=== PATIENT | male | born 1990 | race Caucasian/White ===

== ENCOUNTER 2018-02-11 13:32 | Emergency (ER) | payer BC, SELFPAY ==
--- NOTE | 2018-02-11 13:37 | W.ED.GENAD ---
Discharge Plan Disposition Patient Disposition: HOME Condition: Good Discharge Details Chief Complaint: Urinary Clinical Impression: Acute UTI Primary Care Provider: Anaya Cason ED Provider: Hank Braden Home Meds and New Rx's Prescriptions: New nitrofurantoin macrocrystal 100 mg capsule 100 mg PO QID Qty: 28 RF: 0 No Action amoxicillin-pot clavulanate 1 TAB tablet 1 ea PO BID Qty: 14 RF: 0 sulfamethoxazole-trimethoprim [Bactrim DS] 1 EACH tablet 2 ea PO BID Qty: 28 RF: 0 hydrocodone-acetaminophen 1 EACH tablet 1 ea PO Q4H Qty: 10 RF: 0 hydrocodone-acetaminophen 1 TAB tablet 1 - 2 tab PO Q4H PRN PRN (Reason: Pain) Qty: 20 RF: 0 Discharge Instructions Instructions: Urinary Tract Infection in Men (ED) Referrals: [facility] Emergency Dept. [Outside] - Return if symptoms worsen Discharge Data Discharge Date/Time-TO BE ENTERED AT DEPARTURE: 02/11/18 15:40 Medical Decision Making UA with 10-20 WBC and symptoms are consistent with uti. Prescribed Macrobid. Advised to continue drinking plenty of fluids. Return to ED if symptoms worsen otherwise with pcp. Lab Data Lab results reviewed: Yes I reviewed the patient's lab results. Lab results narrative: 10-20 wbc negative nitrite and leukocyte esterase HPI General Mode of arrival: ambulatory. Date/Time Provider Initiated Documentation: 02/11/18 13:36. Information obtained by: patient. HPI Narrative: 27 y/o male here with c/o uti symptoms for a week. He first noted urinary frequency, more than usual and then he noticed burning with urination and then today noticed blood in his urine. Denies any trauma. His GF is with him and they bot report being treated for GC/Chlamydia over ten years ago but have been in monogamous relationship for the last five years. He denies any testicular or abdominal pain. Denies any N/V/D, fever or chills. Related Data Home Medications Medication Instructions Recorded Confirmed amoxicillin-pot clavulanate 1 ea PO BID #14 tab 06/14/13 06/22/13 hydrocodone-acetaminophen 1 ea PO Q4H #10 tablet 06/21/13 06/22/13 sulfamethoxazole-trimethoprim 2 ea PO BID #28 tablet 06/21/13 06/22/13 [Bactrim DS] hydrocodone-acetaminophen 1 - 2 tab PO Q4H PRN PRN #20 tab 06/22/13 nitrofurantoin macrocrystal 100 mg PO QID #28 cap 02/11/18 Previous Rx's Medication Instructions Recorded amoxicillin-pot clavulanate 1 ea PO BID #14 tab 06/14/13 hydrocodone-acetaminophen 1 ea PO Q4H #10 tablet 06/21/13 sulfamethoxazole-trimethoprim 2 ea PO BID #28 tablet 06/21/13 [Bactrim DS] hydrocodone-acetaminophen 1 - 2 tab PO Q4H PRN PRN #20 tab 06/22/13 nitrofurantoin macrocrystal 100 mg PO QID #28 cap 02/11/18 Allergies Allergy/AdvReac Type Severity Reaction Status Date / Time No Known Allergies Allergy Unverified 02/11/18 13:41 Review of Systems ENT Reports system reviewed and no additional complaints, except as docu Cardiovascular Reports system reviewed and no additional complaints, except as docu Respiratory Reports system reviewed and no additional complaints, except as docu Gastrointestinal Reports system reviewed and no additional complaints, except as docu Genitourinary Reports hematuria, Reports dysuria and Reports urinary frequency Musculoskeletal Reports system reviewed and no additional complaints, except as docu Integumentary/Breasts Reports system reviewed and no additional complaints, except as docu Neurologic Reports system reviewed and no additional complaints, except as docu Hematologic/Lymphatic Reports system reviewed and no additional complaints, except as docu PFSH Social History Smoking/Tobacco Use Status: Former Tobacco Use Exam Const General: cooperative, healthy appearing, comfortable and no acute distress Nutritional Appearance: average body habitus Orientation: alert, awake and oriented x3 Male General Exam: Yes normal external exam, No ecchymosis, No erythema, No hernia and No inguinal lymphadenopathy Penis: normal penis Meatus: meatus normal Scrotum: scrotum normal Testes: normal and no testicular tenderness Back/Spine/Pelvis Back: No back tenderness Skin General skin exam: no rashes or lesions noted Extrem General: normal to inspection, full ROM and normal capillary refill Psych Appearance: grossly normal and well kempt Speech and Movement: speech and movement normal Mood: congruent mood
[2018-02-11 13:39] VITALS: BP 127/77; PULSE 67; RESP 16; TEMP 36.8; O2SAT 99
[2018-02-11 13:55] LABS: Bilirubin Negative (Negative); Blood Trace-intact (Negative); Clarity Clear; Glucose Negative (Negative); Ketones Negative (Negative); Leukocyte Esterase Negative (Negative); Nitrite Negative (Negative); Specific Gravity 1.015 (1.005-1.025); pH 8.5 (5-8)
[2018-02-11 14:06] LABS: Bacteria Few HPF (Negative); C & S Indicated? No/Sq. Contamination; Casts Negative LPF (Negative); Crystals Few Amorphous HPF (Negative); Epithelial Cells Many HPF (Negative); Mucus Negative (Negative)
[2018-02-11 15:12] LABS: Bilirubin Negative (Negative); Blood Negative (Negative); Clarity Clear; Glucose Negative (Negative); Ketones Negative (Negative); Leukocyte Esterase Negative (Negative); Nitrite Negative (Negative)
[2018-02-11 15:39] VITALS: BP 127/77; PULSE 67; RESP 16; TEMP 36.8; O2SAT 99
[2018-02-15 15:02] LABS: Chlamydia Result Negative; GC Result Negative; Specimen Description URINE
== END 2018-02-11 15:40 | disposition home or self-care (01) ==
PROVIDERS: Emergency Provider Nurse Practitioner Family; PCP Nurse Practitioner Family
DX: N39.0 Urinary tract infection, site not specified (principal)
CPT/HCPCS: 36416; 82962; 87491; 87591; 99283; 81003; 81015

== ENCOUNTER → 2018-07-22 10:31 | Outpatient (CLI) | payer BC, SELFPAY ==
[2018-07-22 12:43] LABS: Abs Immature Grans 0.01 k/cumm (0.0-0.09); Absolute Basophil Count 0.01 k/cumm (0.0-0.2); Absolute Eosinophil Count 0.11 k/cumm (0.0-0.7); Absolute Lymphocyte Count 2.34 k/cumm (1.2-3.4); Absolute Monocyte Count 0.66 k/cumm (0.11-0.7); Basophils % 0.2; Eosinophils % 1.7; HCT 47.7 % (40.0-50.0); HGB 16.1 g/dL (13.5-17.5); Immature Grans % 0.2; Lymphocytes % 35.8; Mean Corp. HGB Concentration 33.8 g/dL (32.0-36.0); Mean Corpuscular Volume 85.9 fL (80-95); Mean Platelet Volume 10.7 fL (8.0-11.0); Monocytes % 10.1; Platelet Count 251 x1000/uL (130-400); RBC 5.55 m/cumm (4.50-6.00); RBC Distribution Width 12.7 % (11.8-14.1); White Blood Cell Count 6.53 k/cumm (4.4-10.8)
[2018-07-22 13:11] LABS: ALT 41 U/L (12-78); AST 27 U/L (15-37); Albumin 4.1 g/dL (3.4-5.0); Alkaline Phosphatase 65 U/L (46-116); Anion Gap 7.5 mmol/L (3-11); BUN 18 mg/dL (7-18); Bilirubin, Total 0.5 mg/dL (0.2-1.0); CO2 29.5 mmol/L (21.0-32.0); CREATININE 1.01 mg/dL (0.70-1.30); Calcium 9.1 mg/dL (8.5-10.1); Chloride 103 mmol/L (98-107); Glucose 80 mg/dL (70-100); Potassium 4.3 mmol/L (3.5-5.1); Sodium 140 mmol/L (136-145); Total Protein 7.2 g/dL (6.4-8.2)
== END ==
PROVIDERS: PCP Nurse Practitioner Family; Visit Provider Nurse Practitioner Family
DX: R30.0 Dysuria (principal)
CPT/HCPCS: 36415; 80053; 85025

== ENCOUNTER → 2018-07-22 11:48 | Outpatient (REF) | payer BC, SELFPAY ==
[2018-07-22 13:00] LABS: Bilirubin Negative (Negative); Blood Negative (Negative); Clarity Clear; Glucose Negative (Negative); Ketones Negative (Negative); Leukocyte Esterase Negative (Negative); Nitrite Negative (Negative); Specific Gravity 1.025 (1.005-1.025); Urobilinogen 0.2 EU/dL (Up TO 0.2); pH 5.5 (5-8)
[2018-07-23 14:49] LABS: Chlamydia Result Negative; GC Result Negative; Specimen Description URINE
== END ==
LOC: LBN 11:48
PROVIDERS: PCP Nurse Practitioner Family; Visit Provider Nurse Practitioner Family
DX: R30.0 Dysuria (principal); R31.9 Hematuria, unspecified; Z11.3 Encounter for screening for infections with a predominantly sexual mode of transmission
CPT/HCPCS: 87491; 87591; 81003; 87086

== ENCOUNTER 2020-03-22 10:04 | Outpatient (CLI) | payer BC, SELFPAY ==
[2020-03-23 14:51] LABS: COVID-19 RT-PCR UVMMC Result Negative (Negative)
== END 2020-03-22 10:24 ==
PROVIDERS: PCP Nurse Practitioner Family; Visit Provider Nurse Practitioner Family
DX: Z20.828 Contact with and (suspected) exposure to other viral communicable diseases (principal)
CPT/HCPCS: U0003

== ENCOUNTER 2021-11-14 08:51 | Emergency (ER) | payer BC, SELFPAY ==
[2021-11-14] VITALS (27 sets, daily range): BP systolic 103–138; BP diastolic 50–83; PULSE 91–106; RESP 14–33; TEMP 37.1–37.3; TEMPC 36.8; O2SAT 96–100; BMI 35.2
--- NOTE | 2021-11-14 10:03 | ED.GENADUL_ITS ---
Discharge Plan Disposition Patient Disposition: HOME Condition: Improving Discharge Details Clinical Impression: Abscess of right buttock Primary Care Provider: Anaya Cason ED Provider: Shantelle Muller Home Meds and New Rx's Prescriptions: New clindamycin HCl 150 mg capsule 450 mg PO TID 7 Days Qty: 63 0RF Discontinued doxycycline hyclate 100 mg capsule 100 mg PO BID Qty: 20 0RF Discharge Instructions Instructions: Abscess (ED) Additional Instructions: Drink plenty of fluids and get plenty of rest. Remove the packing yourself at home tomorrow and shower or sit in a warm bath. Take daily baths or use sitz baths as directed to help with cleaning and drainage. A prescription for antibiotics has been sent electronically to your pharmacy to take as directed until finished. Alternate tylenol and motrin as needed and directed for pain. Take the oxycodone for pain with Tylenol or Motrin. You have been placed on general surgery follow-up list to arrange for a follow- up appointment for reevaluation next Thursday or Thursday. Return immediately to the emergency department if you develop any worsening or new concerning symptoms. Referrals: Ric Wick MD [ [facility] STAFF PHYSICIAN] - Discharge Data Discharge Physician: Shantelle Muller Medical Decision Making 0900 -- 31-year-old male with a history of multiple buttock abscesses with previous incision and drainage presents with right buttock pain, redness and swelling for the past 4 days. He appears comfortable and nontoxic. He is afebrile here and has not taken any medication for pain or fever today. He has an approximate 8 x 6 cm area of erythematous and tender induration in the right inner buttock. There is not appear to be any obvious extension to the perianal area. There is no obvious area of fluctuance. Bedside ultrasound noted a large loculated collection. Due to questionable size and extension of abscess in this delicate area, will obtain labs and CT imaging. We will give a dose of Toradol and IV fluids. 1130 --labs and imaging reviewed. White blood cell count 14. Lactate normal at 0.8. CT notes 8 x 2 x 3 cm abscess. No obvious extension into bone or musculature. Case and imaging reviewed with Dr. Wick --patient appropriate for incision and drainage in the emergency department. 1330 --attempted I&D at bedside --1.5 cm incision made in center of induration with only bloody drainage. Concerned about depth of abscess with surrounding vasculature. Case discussed with Dr. Wick and he will take patient to the OR. We will start IV clindamycin and give a dose of IV Dilaudid. 1600 -- There was no OR availability so I&D performed by Dr. Wick with [employer] at bedside. Packing placed. Plan is for patient to remove the packing himself tomorrow at home and continue sitz bath. Prescription for clindamycin sent electronically to his pharmacy. He was placed on surgery follow-up list for reevaluation outpatient next Thursday or Thursday. Usual and customary return precautions given prior to discharge. Medical Records Medical records reviewed: Yes I reviewed the patient's medical records. Imaging Data Radiologic Study: Radiologist's impression: CT PELVIC W CLINICAL HISTORY: ? R buttock abscess, assess extension of abscess. ? TECHNIQUE:? Imaging Protocol: Axial computed tomography images with coronal and sagittal reformatted images were created and reviewed CONTRAST MATERIAL:? Intravenous: Omnipaque 100cc Oral: None COMPARISON:? No exams were available for comparison FINDINGS: PELVIS:? SOFT TISSUES: There is an abscess in the medial right buttock tissues with most cephalad extent at the right para-anal level (approximately levator ani muscle level) and extending caudally for distance of 8.5 cm.? It is 2.5 cm wide and measures 3.5 cm AP.? Contains fluid and gas bubbles, consistent with abscess.? There is induration-inflammatory streaking of the subcutaneous tissue in the buttock posteriorly to this abscess and extending to the posterior skin surface which appears thickened.? There is no obvious involvement of the gluteus dante and medius muscles. There are no significant findings left of center. OSSEOUS:No involvement of the coccyx.? No evidence of osteomyelitis.? Sacroiliac joints unremarkable.No fractures.? No significant incidental osseous lesions. ANTERIOR ABDOMINAL WALL/GI:No evidence of bowel obstruction.? No evidence of appendicitis.No evidence of sigmoid diverticulitis. LYMPH NODES: There is no intrapelvic nor inguinal adenopathy. REPRODUCTIVE: Prostate and seminal vesicles unremarkable.? URINARY BLADDER: Unremarkable.? Not distended.? No intraluminal gas. IMPRESSION: 1. Right perianal abscess measuring 8.5 cm craniocaudal by 2.5 cm wide by 3.5 cm AP, as described above.? There is abundant inflammatory streaking in the adjacent subcutaneous fat and overlying skin thickening-probable cellulitis type.? No involvement of the coccyx nor of the gluteus musculature.? Surgical consultation recommended Lab Data Lab results reviewed: Yes I reviewed the patient's lab results. Labs: 11/14/21 10:35 Blood Blood Culture - Pending 11/14/21 10:10 Blood Blood Culture - Pending Laboratory Tests Range/Units 11/14/21 11/14/21 11/14/21 10:10 10:10 10:10 WBC (4.4-10.8) 10^3/uL 14.66 H RBC (4.36-5.78) 10^6/uL 5.21 Hgb (13.5-17.5) g/dL 15.4 Hct (40.0-50.0) % 45.5 MCV (80-95) fL 87 MCH (27.0-33.0) pg 29.6 MCHC (32.0-36.0) % 33.8 RDW (11.8-14.1) % 11.8 Plt Count (130-400) 10^3/uL 247 MPV (8.0-11.0) fL 9.8 Immature Gran % 0.3 Neutrophils % 77.7 Lymphocytes % 13.1 Monocytes % 8.5 Eosinophils % 0.2 Basophils % 0.2 Nucleated RBC % (0.0-0.3) % 0.0 Absolute Neutrophils (1.2-6.7) 10^3/uL 11.39 H Absolute Lymphocytes (1.2-3.4) 10^3/uL 1.92 Absolute Monocytes (0.1-0.8) 10^3/uL 1.25 H Absolute Eosinophils (0.0-0.7) 10^3/uL 0.03 Absolute Basophils (0.0-0.2) 10^3/uL 0.03 VBG Lactate (0.6-1.4) mmol/L 0.8 Sodium (136-145) mmol/L 140 Potassium (3.5-5.1) mmol/L 3.9 Chloride (98-107) mmol/L 102 Carbon Dioxide (21.0-32.0) mmol/L 29.2 Anion Gap (3-11) mmol/L 8.8 BUN (7-18) mg/dL 15 Creatinine (0.70-1.30) mg/dL 1.2 Estimated GFR/1.73 m2 (mL/min/1.73m2) >= 60.00 Glucose (74-106) mg/dL 98 Calcium (8.5-10.1) mg/dL 8.7 Total Bilirubin (0.2-1.0) mg/dL 0.6 AST (15-37) U/L 13 L ALT (16-63) U/L 30 Alkaline Phosphatase (46-116) U/L 56 Total Protein (6.4-8.2) g/dL 7.8 Albumin (3.4-5.0) g/dL 3.4 HPI General Mode of arrival: ambulatory . Date/Time Provider Initiated Documentation: 11/14/21 08:56 . Limitations to Documentation: no limitations . Information obtained by: patient . HPI Narrative: Patient is a 31-year-old male with a history of multiple buttock abscesses with incision and drainage with last abscess approximately 2 to 3 years ago presents with right buttock pain, tenderness or swelling for the past 4 days. Patient states he was seen at the local urgent care and then placed on doxycycline which she has taken 4 doses. He states his symptoms have been progressively worsening. He admits to a fever for the past few days, T-max 101. He has not taken any medication for pain today. He states he did have a loose bowel movement today. He denies fever, nausea, vomiting or abdominal pain. Related Data Home Medications Medication Instructions Recorded Confirmed clindamycin HCl 150 mg capsule 450 mg PO TID 7 days #63 caps 11/14/21 Previous Rx's Medication Instructions Recorded clindamycin HCl 150 mg capsule 450 mg PO TID 7 days #63 caps 11/14/21 Allergies Allergy/AdvReac Type Severity Reaction Status Date / Time No Known Allergies Allergy Unverified 11/14/21 09:10 General Stated Complaint: Cellulitis DASHA: 3 Review of Systems All systems reviewed & are unremarkable except as noted in HPI and below Constitutional Constitutional: Denies chills, Denies excessive sweating, Denies fatigue, Denies fever(s), Denies weakness and Denies weight loss Eyes Eyes: Reports system reviewed and no additional complaints, except as documented and Denies blurry vision ENT Ears, Nose, Mouth, and Throat: Denies vertigo, Denies dizziness, Denies otalgia, Denies nasal congestion, Denies sore throat and Denies throat swelling Cardiovascular Cardiovascular: Denies chest pain, Denies syncope, Denies rapid heart rate and Denies dyspnea Respiratory Respiratory: Denies chest congestion, Denies cough, Denies pain on inspiration and Denies dyspnea Gastrointestinal Gastrointestinal: Denies abdominal pain, Denies diarrhea and Denies vomiting Genitourinary Genitourinary: Denies hematuria, Denies dysuria and Denies flank pain Musculoskeletal Musculoskeletal: Denies back pain and Denies joint swelling Integumentary/Breasts Skin/Breast: Reports furuncle, Denies lesions and Denies rash Neurologic Neurologic: Denies behavioral changes, Denies confusion, Denies vertigo, Denies dizziness, Denies syncope, Denies localized weakness and Denies weakness Psychiatric Psychiatric: Denies behavioral changes, Denies confusion and Denies depression Endocrine Endocrine: Denies excessive sweating and Denies fatigue Hematologic/Lymphatic Hematologic/Lymphatic: Denies easy bruising and Denies lymphadenopathy Allergic/Immunologic Allergic/Immunologic: Denies throat swelling PFSH All Active Problems (Updated 11/14/21 @ 15:15 by Shantelle Muller DO) Abscess of right buttock (Acute) Dysuria (Chronic) Medical History Perianal abscess (06/22/13) 06/22/13; INCISION AND DRAINAGE Surgical History History of surgery on arm as a child secondary to fracture Social History Smoking/Tobacco Use Status: Former Tobacco Use Smoking risk assessment performed?: Yes Alcohol Intake: current Alcohol Intake frequency: 0-2 drinks per day Alcohol type: beer Drug use: Occasionally Substance use type: marijuana Exam Const General: cooperative and healthy appearing Orientation: alert, awake and oriented x3 HENMT Head: normal to inspection Ears: hearing grossly normal bilaterally, external ears normal and TM's normal bilaterally General nose exam: external nose normal Face and sinus: normal facial exam Mouth: oral mucosae normal Teeth and gingiva: dentition normal Throat: posterior oropharynx normal Eyes General: appearance normal, both eyes and all related structures Eyelids: eyelids normal Pupils: PERRL EOM: EOM intact bilaterally Neck Neck: normal visual inspection Lymphatic: no lymphadenopathy noted Chest Chest: normal inspection of the chest Resp Effort & Inspection: normal respiratory effort and able to speak in complete s entences Auscultation: clear to auscultation bilaterally Cardio Rate: regular rate Rhythm: regular rhythm GI Inspection: normal to inspection and obesity Palpation: soft, not firm, no guarding, no hepatosplenomegaly, no masses and nontender Auscultation: normal bowel sounds Back/Spine/Pelvis Back/spine/pelvis image: 1. An approximate 8 x 6 cm area of erythema and tender induration located on the right inner buttock. There is not appear to be extension of tenderness and induration into the perianal area. There is no obvious pus drainage or bleeding. Skin General skin exam: no rashes or lesions noted Neuro General: patient alert and patient awake Cognition: normal cognition Speech: speech normal Gait: normal gait Motor: muscle tone normal throughout Sensory Exam: no sensory deficits noted Extrem General: normal to inspection, full ROM and capillary refill normal Psych Appearance: grossly normal Mental Status: mental status grossly normal Speech and Movement: speech and movement normal Affect: normal affect Thought Process: normal Course Vital Signs Vital signs: Vital Signs Temperature 98.8 F 11/14/21 08:56 Pulse 91 H 11/14/21 08:56 Blood Pressure 138/78 11/14/21 08:56 Pulse Oximetry 99 11/14/21 08:56 Temperature 98.8 F 11/14/21 08:56 Temperature Source Temporal Artery Scan 11/14/21 08:56 Pulse 91 H 11/14/21 08:56 Respiratory Effort Non-Labored 11/14/21 09:03 Blood Pressure 138/78 11/14/21 08:56 Blood Pressure Position Sitting 11/14/21 08:56 Pulse Oximetry 99 11/14/21 08:56 Oxygen Delivery Method Room Air 11/14/21 08:56 Oxygen Flow Rate 0 11/14/21 08:56 Pain Level 7 11/14/21 08:56 Lab/Test Results Lab/Test Results: 11/14/21 09:59 Blood Blood Culture - Pending 11/14/21 09:59 Blood Blood Culture - Pending Procedures Abscess I/D Site: Other (Buttock) Side (if applicable): Right Local Anesthetic: Lidocaine 1% and With Epi Amount of anesthesia used (mL): 15 Technique: Incised with #11 Blade Amount of fluid expressed (mL): 2 Irrigation: No Packing used?: None Complications: Bleeding (2cc bloody drainage) PAWSS Have you Been Recently Intoxicated or Drunk Within the Last 30 days?: Yes Have you Ever Experienced Previous Episodes of Alcohol Withdrawal?: No Have you ever Experienced Withdrawal Seizures?: No Have you ever Experienced Delirium Tremens(DT)s?: No Have you ever undergone Alcohol Rehabilitation Treatment (i.e, inpt ot outpatient treatment programs)?: No Have you ever Experienced Blackouts?: Yes Have you ever Combined Alcohol with other Downers within the last 90 days?: No Have you ever Combined Alcohol with any other Substance of Abuse during the last 90 days?: Yes Positive Blood Alcohol level on Presentation? [PCS.BAL]: Unable to Obtain Evidence of Increased Autonomic Activity (i.e. HR>120, tremor, sweating, agitation, nausea)?: No Result: 4
[2021-11-14] MEDS: Normal Saline 1,000 ML 1000 ML IV ×2 (10:16→14:32)
[2021-11-14 10:21] LABS: Lactate 0.8 mmol/L (0.6-1.4)
[2021-11-14 10:22] LABS: Abs Immature Grans 0.05 10^3/uL (0.0-0.06); Absolute Basophil Count 0.03 10^3/uL (0.0-0.2); Absolute Eosinophil Count 0.03 10^3/uL (0.0-0.7); Absolute Lymphocyte Count 1.92 10^3/uL (1.2-3.4); Absolute Monocyte Count 1.25 10^3/uL (0.1-0.8); Basophils % 0.2; Eosinophils % 0.2; HCT 45.5 % (40.0-50.0); HGB 15.4 g/dL (13.5-17.5); Immature Grans % 0.3; Lymphocytes % 13.1; MCH 29.6 pg (27.0-33.0); MCHC 33.8 % (32.0-36.0); MCV 87 fL (80-95); MPV 9.8 fL (8.0-11.0); Monocytes % 8.5; Neutrophils % 77.7; Platelet Count 247 10^3/uL (130-400); RBC 5.21 10^6/uL (4.36-5.78); RDW 11.8 % (11.8-14.1); RDW-SD 37.8 fL; WBC 14.66 10^3/uL (4.4-10.8)
[2021-11-14 10:24] LABS: Absolute Neutrophil Count 11.39 10^3/uL (1.2-6.7)
[2021-11-14] MEDS: Ketorolac 30 MG/ML VIAL IVP (10:25)
[2021-11-14 10:37] LABS: ALT 30 U/L (16-63); AST 13 U/L (15-37); Albumin 3.4 g/dL (3.4-5.0); Alkaline Phosphatase 56 U/L (46-116); Anion Gap 8.8 mmol/L (3-11); BUN 15 mg/dL (7-18); Bilirubin, Total 0.6 mg/dL (0.2-1.0); CO2 29.2 mmol/L (21.0-32.0); CREATININE 1.2 mg/dL (0.70-1.30); Calcium 8.7 mg/dL (8.5-10.1); Chloride 102 mmol/L (98-107); Glucose 98 mg/dL (74-106); Potassium 3.9 mmol/L (3.5-5.1); Sodium 140 mmol/L (136-145); Total Protein 7.8 g/dL (6.4-8.2)
--- NOTE | 2021-11-14 11:14 | DI.CT_ITS ---
Exam(s) CT PELVIC W EXAM: CT PELVIC W CLINICAL HISTORY: R buttock abscess, assess extension of abscess. TECHNIQUE: Imaging Protocol: Axial computed tomography images with coronal and sagittal reformatted images were created and reviewed CONTRAST MATERIAL: Intravenous: Omnipaque 100cc Oral: None COMPARISON: No exams were available for comparison FINDINGS: PELVIS: SOFT TISSUES: There is an abscess in the medial right buttock tissues with most cephalad extent at th e right para-anal level (approximately levator ani muscle level) and extending caudally for distance of 8.5 cm. It is 2.5 cm wide and measures 3.5 cm AP. Contains fluid and gas bubbles, consistent wit h abscess. There is induration-inflammatory streaking of the subcutaneous tissue in the buttock post eriorly to this abscess and extending to the posterior skin surface which appears thickened. There i s no obvious involvement of the gluteus dante and medius muscles. There are no significant findings left of center. OSSEOUS:No involvement of the coccyx. No evidence of osteomyelitis. Sacroiliac joints unremarkable. No fractures. No significant incidental osseous lesions. ANTERIOR ABDOMINAL WALL/GI:No evidence of bowel obstruction. No evidence of appendicitis.No evidence of sigmoid diverticulitis. LYMPH NODES: There is no intrapelvic nor inguinal adenopathy. REPRODUCTIVE: Prostate and seminal vesicles unremarkable. URINARY BLADDER: Unremarkable. Not distended. No intraluminal gas. IMPRESSION: 1. Right perianal abscess measuring 8.5 cm craniocaudal by 2.5 cm wide by 3.5 cm AP, as described abo ve. There is abundant inflammatory streaking in the adjacent subcutaneous fat and overlying skin thi ckening-probable cellulitis type. No involvement of the coccyx nor of the gluteus musculature. Surg ical consultation recommended Report called by myself to ER physician. RADIATION DOSE DELIVERED: 802.65mGy.cm Total DLP DATA REPOSITORY: All CT scans at this facility are submitted to the National Radiology Data Registry (NRDR) Dose Index Registry (DIR) with the [employer] ([employer]). RADIATION OPTIMIZATION: All CT scans at this facility use at least one of these dose optimization te chniques: automated exposure control; mA and/or kV adjustment per patient size (includes targeted exa ms where dose is matched to clinical indication); or iterative reconstruction.
--- NOTE | 2021-11-14 12:19 | PDOC.ERCMPRO ---
- If Service Date Differs Date of service: 11/14/21 Time of Service: 12:19 Care Management Progress Note SBIRT screen: negative Pt reports weekly cannabis use with no symptoms of dependency and minimal alcohol use. Pt reports no other substance use or mental health symptoms.
[2021-11-14] MEDS: oxyCODONE 5 MG TAB PO (12:27)
[2021-11-14 14:14] LABS: Source Nasal/Nares
[2021-11-14] MEDS: CLINDAMYCIN 600 MG/50 ML BAG 100 MG IVPB (14:33)
[2021-11-14] MEDS: HYDROmorphone 2 MG/ML VIAL 1 MG IVP (14:41)
--- NOTE | 2021-11-14 14:44 | ANES.PREOP_ITS ---
General Info Date of Service Date Performed: 11/14/21 Height: 5 ft 10 in Weight: 111.13 kg Body Mass Index (BMI): 35.2 Meds Allergies and Home Medications Allergies Allergy/AdvReac Type Severity Reaction Status Date / Time No Known Allergies Allergy Unverified 11/14/21 09:10 Home Medication Medication Instructions Recorded doxycycline hyclate 100 mg capsule 100 mg PO BID #20 caps 11/12/21 Current Visit Medications: Current Medications Generic Name Dose Route Start Last Admin Trade Name Freq PRN Reason Stop Dose Admin Sodium Chloride 1,000 mls @ 1,000 mls/hr 11/14/21 14:17 11/14/21 14:32 Saline 1000ml Bag IV 11/14/21 15:16 1,000 mls/hr BOLUS ONE Administration IV Miscellaneous Supplies 1 each 11/14/21 10:00 Iv Access IV DIRECTED ATIYA Iohexol 100 ml 11/14/21 11:30 Omnipaque 350 Mg/Ml 100 Ml Btl IJ 12/14/21 23:59 DIRECTED ATIYA Sodium Chloride 0 ml 11/14/21 09:59 Normal Saline Flush 10 Ml Syr IVP PRN PRN Sodium Chloride 250 ml 11/14/21 11:15 11/14/21 11:15 Normal Saline 250 Ml Bag IJ 50 ml DIRECTED ATIYA Administration PFSH Active Problems Active Problems: Problem Status Onset Code Dysuria R30.0 Medical History Medical History Perianal abscess (06/22/13) 06/22/13; INCISION AND DRAINAGE Surgical History Surgical History (Updated 11/14/21 @ 10:05 by Shantelle Muller DO) History of surgery on arm as a child secondary to fracture Tobacco Smoking/Tobacco Use Status: Former Tobacco Use Alcohol Alcohol Intake: current Alcohol intake frequency: 0-2 drinks per day Alcohol type: beer Substance Use Substance use: Occasionally Substance use type: marijuana Vital Signs and Lab Results Vital Signs Most Recent Vital Signs in EMR: Most Recent Vital Signs Temp Pulse Resp BP Pulse Ox 37.3 C 91 H 20 116/54 L 98 11/14/21 14:01 11/14/21 14:01 11/14/21 14:01 11/14/21 14:01 11/14/21 14:01 Lab Results Result Diagrams: 11/14/21 10:10 11/14/21 10:10 Blood Type / Crossmatch: No Data to Display Complete Blood Count: White Blood Count 14.66 10^3/uL (4.4-10.8) H 11/14/21 10:10 Red Blood Count 5.21 10^6/uL (4.36-5.78) 11/14/21 10:10 Hemoglobin 15.4 g/dL (13.5-17.5) 11/14/21 10:10 Hematocrit 45.5 % (40.0-50.0) 11/14/21 10:10 Platelet Count 247 10^3/uL (130-400) 11/14/21 10:10 Venous Blood Lactate 0.8 mmol/L (0.6-1.4) 11/14/21 10:10 Complete Metabolic Panel: Sodium Level 140 mmol/L (136-145) 11/14/21 10:10 Potassium Level 3.9 mmol/L (3.5-5.1) 11/14/21 10:10 Chloride Level 102 mmol/L (98-107) 11/14/21 10:10 Carbon Dioxide Level 29.2 mmol/L (21.0-32.0) 11/14/21 10:10 Blood Urea Nitrogen 15 mg/dL (7-18) 11/14/21 10:10 Creatinine 1.2 mg/dL (0.70-1.30) 11/14/21 10:10 Estimated GFR/1.73 m2 >= 60.00 (mL/min/1.73m2) 11/14/21 10:10 Calcium Level 8.7 mg/dL (8.5-10.1) 11/14/21 10:10 Albumin 3.4 g/dL (3.4-5.0) 11/14/21 10:10 Glucose Level 98 mg/dL (74-106) 11/14/21 10:10 Liver Function Panel: Alanine Aminotransferase (ALT/SGPT) 30 U/L (16-63) 11/14/21 10: 10 Aspartate Amino Transf (AST/SGOT) 13 U/L (15-37) L 11/14/21 10: 10 Coagulation Panel: No Data to Display Cardiac Panel: No Data to Display Arterial Blood Gas: No Data to Display Venous Blood Gas: No Data to Display Pancreas Panel: No Data to Display Thyroid Panel: No Data to Display Infectious Disease: Coronavirus 2019 Source Nasal/Nares 11/14/21 14:06 Blood Cultures: No Data to Display Toxicology Panel: No Data to Display Anesthesia Assessment and Plan Anesthesia History Personal History: No History of Anesthesia Complications Family History: No Family History of Anesthesia Complications Exercise Tolerance Exercise Tolerance: Metabolic Equivalents>4 Pertinent Negatives Pertinent Negatives: No Symptoms of GERD, No Major Cardiovascular Symptoms or Complaints, No Major Pulmonary Symptoms or Complaints and No History of CVA/TIA Cardiac & Pulmonary Exam Cardiac Exam: Normal S1/S2 Heart Sounds Pulmonary Exam: Clear Bilateral Breath Sounds Implantable Cardiac Device Does patient have a Pacemaker or an ICD?: No Airway Exam Known Difficult Airway: No Mallampati Class: 2 Mouth Opening: Narrow (< 3cm) Thyromental Distance: Greater than 3 cm Neck Range of Motion: Full ROM Neck Circumference: Normal Teeth Condition: Normal Dentition ASA Classification ASA Score: ASA 2 Emergency Case?: No NPO Status NPO Status: NPO Clears >2 hours, Solids >8 hours Anesthesia Plan Resuscitation Status: Full Code Anesthesia Technique: General Anesthesia Airway Planned: Natural Airway Monitors Used: Standard Monitors
[2021-11-14 14:58] LABS: COVID-19 PCR Negative (Negative)
--- NOTE | 2021-11-14 15:00 | W.SURGCON ---
Date of service: 11/14/21 Time of Service: 15:00 Assessment and Plan Assessment and plan (1) Abscess of right buttock: Status: Acute Assessment and plan: I reviewed the CAT scan of the pelvis and agree that there is a right-sided buttock abscess that extends towards the perianal area. I suspect there is a fistula arising from the anus, although I am not able to appreciated on physical exam. With informed consent, with the assistance of anesthetia, I incised and drained the right buttock abscess in the usual manner. I drained approximately 30 cc of purulent fluid. I was able to obtain a specimen for gram stain and culture. I irrigated the wound clean, and placed some iodoform packing. I think he is safe to discharge home with basic perianal abscess instructions. I like to see him in the office sometime next week to see how the drainage and antibiotics worked. Ultimately, I think he probably benefit from exam under anesthesia to help further refine the diagnosis, and hopefully prevent recurrence of another abscess in the future. History of Present Illness History of Present Illness Chief Complaint: right buttock pain Narrative: Henry is a 31-year-old male who presents with 4 to 5 days of increasing buttock pain. Its mostly on the right side. It is worse with sitting, and some exercises exacerbate the discomfort. Does not seem to be related to bowel function at all. He denies any other systemic signs of illness like fevers, chills, nausea or vomiting. He says this is similar to episodes of buttock abscesses he has had in the past. He is required incision and drainage on 3 other occasions. Review of Systems Constitutional Constitutional: Denies body ache(s), Reports chills, Denies fatigue, Denies fever(s), Denies malaise and Reports night sweats Eyes Eyes: Denies blurry vision and Denies change in vision Cardiovascular Cardiovascular: Denies chest pain and Denies dyspnea Respiratory Respiratory: Denies chest congestion, Denies cough and Denies dyspnea Gastrointestinal Gastrointestinal: Denies abdominal pain, Denies bloating, Denies hematochezia, Denies change in bowel habits and Denies constipation Musculoskeletal Musculoskeletal: Denies myalgias Neurologic Neurologic: Denies behavioral changes Psychiatric Psychiatric: Denies behavioral changes Endocrine Endocrine: Denies fatigue Hematologic/Lymphatic Hematologic/Lymphatic: Denies easy bleeding and Denies easy bruising PFSH All Active Problems Abscess of right buttock (Acute) Dysuria (Chronic) Medical History Perianal abscess (06/22/13) 06/22/13; INCISION AND DRAINAGE Surgical History History of surgery on arm as a child secondary to fracture Social History Smoking/Tobacco Use Status: Former Tobacco Use Smoking risk assessment performed?: Yes Alcohol Intake: current Alcohol Intake frequency: 0-2 drinks per day Alcohol type: beer Drug use: Occasionally Substance use type: marijuana Exam Const General: cooperative, healthy appearing and comfortable Orientation: awake and oriented x3 Eyes General: appearance normal, both eyes and all related structures Conjunctivae: conjunctivae normal Sclera: sclerae normal Resp Effort & Inspection: normal respiratory effort and able to speak in complete sentences Cardio Jugular venous pressure: no JVD Rate: regular rate GI Inspection: non-distended Palpation: soft, no guarding, no hernias and nontender Auscultation: normal bowel sounds Rectal Exam: visual inspection normal, normal sphincter tone and No mass Other: Erythematous and indurated area on the medial aspect of the right buttock on the intergluteal cleft. Skin General skin exam: normal turgor Neuro General: patient alert, patient awake and patient oriented x3 Cognition: normal cognition Extrem Right lower extremity: no edema Left lower extremity: no edema Results Last Vital Signs Temp 99.1 F 11/14/21 14:01 Pulse 91 H 11/14/21 14:01 Resp 20 11/14/21 14:01 BP 116/54 L 11/14/21 14:01 Pulse Ox 98 11/14/21 14:01 Labs Result diagrams: 11/14/21 10:10 11/14/21 10:10 Labs: Laboratory Results - last 24 hr 11/14/21 11/14/21 11/14/21 10:10 10:10 10:10 WBC 14.66 H RBC 5.21 Hgb 15.4 Hct 45.5 MCV 87 MCH 29.6 MCHC 33.8 RDW 11.8 Plt Count 247 MPV 9.8 Immature Gran % 0.3 Neutrophils % 77.7 Lymphocytes % 13.1 Monocytes % 8.5 Eosinophils % 0.2 Basophils % 0.2 Nucleated RBC % 0.0 Absolute Neutrophils 11.39 H Absolute Lymphocytes 1.92 Absolute Monocytes 1.25 H Absolute Eosinophils 0.03 Absolute Basophils 0.03 VBG Lactate 0.8 Sodium 140 Potassium 3.9 Chloride 102 Carbon Dioxide 29.2 Anion Gap 8.8 BUN 15 Creatinine 1.2 Estimated GFR/1.73 m2 >= 60.00 Glucose 98 Calcium 8.7 Total Bilirubin 0.6 AST 13 L ALT 30 Alkaline Phosphatase 56 Total Protein 7.8 Albumin 3.4 COVID-19 Source SARS-CoV-2 (PCR) 11/14/21 14:06 WBC RBC Hgb Hct MCV MCH MCHC RDW Plt Count MPV Immature Gran % Neutrophils % Lymphocytes % Monocytes % Eosinophils % Basophils % Nucleated RBC % Absolute Neutrophils Absolute Lymphocytes Absolute Monocytes Absolute Eosinophils Absolute Basophils VBG Lactate Sodium Potassium Chloride Carbon Dioxide Anion Gap BUN Creatinine Estimated GFR/1.73 m2 Glucose Calcium Total Bilirubin AST ALT Alkaline Phosphatase Total Protein Albumin COVID-19 Source Nasal/Nares SARS-CoV-2 (PCR) Negative Procedures Abscess I/D Site: jacinta-rectal (Extending into the right buttock) Side (if applicable): right Sedation/analgesia: midazolam and propofol Technique: incised with #11 blade Amount of fluid (mL): 30 Irrigation: Yes Packing used?: iodoform
--- NOTE | 2021-11-14 16:08 | W.ANESPOSTOP ---
Postoperative Evaluation Date, Time and Location Date Performed: 11/14/21 Time Performed: 16:09 Patient Location: Emergency Department Vital Signs Most Recent Imported Vital Signs: Most Recent Vital Signs Temp Pulse Resp BP Pulse Ox 37.3 C 97 H 28 H 103/81 97 11/14/21 14:01 11/14/21 16:04 11/14/21 16:04 11/14/21 16:04 11/14/21 16:04 Most Recent Manually Entered Vital Signs: Adult Blood Pressure: 134/72 Heart Rate: 101 Respirations: 22 Oxygen Saturation (%): 98 Temperature (C): 36.8 C Pain Score (0-10 Scale): 0 Pain Score Most Recent Pain Score: Most Recent Pain Score Pain Level 3 11/14/21 14:41 Assessment Mental Status: Awake (Alert & Oriented to Patient Baseline) Airway and Respiratory Function: Patent airway with normal (patient baseline) respiratory exam Cardiovascular Function: Hemodynamically Stable Hydration Status: Adequately Hydrated Nausea & Vomiting: No Nausea or Vomiting Pain: Pain is tolerable per patient Peripheral Nerve Block: Patient did not receive a nerve block
[2021-11-14] MEDS: Clindamycin 150 MG CAP, 12 CAPS/BTL 450 MG PO (17:03)
== END 2021-11-14 17:05 | disposition home or self-care (01) ==
PROVIDERS: Emergency Provider Physician Assistant; PCP Nurse Practitioner Family
DX: K61.1 Rectal abscess (principal); Z87.891 Personal history of nicotine dependence; Z20.822 Contact with and (suspected) exposure to COVID-19
CPT/HCPCS: 36415; 46040; 80053; 87040; 87077; 87635; 96361; 96365; 96375; 99285; 72193; 83605; 85025; 87070; 87186; 99284; J1885; J2250; J2704

== ENCOUNTER 2021-12-18 01:35 | Outpatient (CLI) | payer BC, SELFPAY ==
[2021-12-18 12:13] LABS: Source Nasal/Nares
[2021-12-18 16:53] LABS: COVID-19 PCR Negative (Negative)
== END 2021-12-18 01:36 | disposition home or self-care (01) ==
LOC: LBO 01:35
PROVIDERS: PCP Nurse Practitioner Family; Visit Provider Surgery
DX: Z01.818 Encounter for other preprocedural examination (principal); Z20.822 Contact with and (suspected) exposure to COVID-19
CPT/HCPCS: 87635

== ENCOUNTER 2021-12-20 08:25 | Day surgery (SDC) | payer BC, SELFPAY ==
--- NOTE | 2021-12-20 08:17 | W.PM.DSUDISC ---
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 Okay to use tylenol and ibuprofen over the counter as needed. 2. Use oxycodone as needed for pain. 3. Leave bandage in place until you shower this evening. 4. Shower with warm soapy water. Pat dry. Use a bandaid if needed to protect your clothing. 5. Use sitz baths as needed for pain and after each bowel movement if necessary for hygiene. 6. No heavy lifting until I see you in the office. 7.Call the office (or go directly to the emergency room after hours) if you notice any of the following: Develop chills (warm to touch), or if you have a thermometer and your temperature is above 101 Difficulty breathing or difficultly swallowing Persistent vomiting Any bleeding ? exceeding one tablespoon 8. Call your physician if the site where your intravenous was started becomes red, swollen, painful, and warm to touch. Referrals: Ric Wick MD [ [facility] STAFF PHYSICIAN] - (7-10 days for follow up) Activity:: Activity as Tolerated Diet:: As Tolerated Discharge Orders Discharge Orders: Discharge Order (Routine); Ordered 12/20/21 Ordered By: Ric Wick DS: Diagnosis Discharge Diagnosis (1) Anal fistula: Status: Acute Asessment and Plan: s/p exam under anesthesia and fistulectomy
--- NOTE | 2021-12-20 08:19 | ROE_ITS ---
Date of service: 12/20/21 Operative Note Operative Note DATE OF PROCEDURE: 12/20/21 PRE-OP DIAGNOSIS: Kristy-anal abscess POST-OP DIAGNOSIS: other (Superficial perianal fistula) PROCEDURE: Anorectal exam under anesthesia with excision fistulectomy and primary closure SURGEON: Ric Wick ANESTHESIA TYPE: Local By Surgeon, MAC and Other (Saddle block) Refer to Anesthesia Record ESTIMATED BLOOD LOSS: 25 PATHOLOGY: none sent COMPLICATIONS: None Patient was transported to: same day Patient's condition: stable Indications: Henry Maki is a 31-year-old male with a history of a multiple perianal abscesses. He has previously undergone incision and drainage. He presents today for anorectal exam under anesthesia to help to identify any potential fistula Procedure Description: After establishing a saddle block, the patient was assisted into prone jackknife positioning, and monitored anesthetic care was initiated. Once he was comfortable, the buttocks were gently retracted with tape. Surgical site was then prepped and draped. I began by identifying his previous abscess drainage site. It was approximately 5 cm from the anal verge. I established a field block with local anesthesia, and I also anesthetized the right ischial tuberosity. The external opening of his previous abscess was on the right buttock. It was slightly anterior to the mid anal line. Using a lacrimal duct probe, I gently followed the trajectory of the fistula. It appeared to curve around to the posterior midline. Next, I performed a digital anorectal exam. It felt normal to me. Then, using a Hegar retractor, I examined the anus and distal rectum. There were some mild internal hemorrhoids. There were no masses. Again, with the assistance of a lacrimal duct probe, I was able to identify the origin of the midline fistula. In the prone jackknife position, this was at the 12:00 location. The trajectory of the fistula was superficial to the sphincter complex. Next, I incised the skin overlying the fistula tract and dissected down into the granulated fistula tunnel. I began laterally, and performed circumferential sharp excision to the posterior fistula origin. The fistula was excised in its entirety. There was a small amount of bleeding from the subcutaneous fat that was easily controlled with the Bovie. Next I i rrigated the surgical site. It was clean. Again, the sphincters were not involved. Next, I closed the surgical site with interrupted 3-0 chromic stitches. Fluffed gauze was used as dressings.
[2021-12-20 08:32] VITALS: BP 130/85; PULSE 81; RESP 18; TEMP 36.1; O2SAT 99
[2021-12-20] MEDS: Acetaminophen 500 MG TAB 1000 MG PO (08:52)
[2021-12-20] MEDS: Gabapentin 300 MG CAP 600 MG PO (08:53)
[2021-12-20] MEDS: Lactated Ringers 1,000 ML 80 ML IV (09:14)
[2021-12-20 09:45] VITALS: BP 130/85; PULSE 81; RESP 18; TEMP 36.1; O2SAT 99
--- NOTE | 2021-12-20 09:46 | W.ANESPRE ---
General Info Date of Service Date Performed: 12/20/21 Height: 5 ft 10 in Weight: 106.594 kg Body Mass Index (BMI): 33.7 Surgical Procedure: Operation Date: 12/20/21 09:40 Proposed Procedure Side Surgeon p Ano-Rectal Exam Under Anesthesia Ric Wick MD Pre-Op Diagnosis Post-Op Diagnosis Ano rectal exam under anesthesia Meds Allergies and Home Medications Allergies Allergy/AdvReac Type Severity Reaction Status Date / Time No Known Allergies Allergy Unverified 12/19/21 13:52 Home Medication Medication Instructions Recorded Unknown [No Known Home Meds] 11/25/21 Current Visit Medications: Current Medications Generic Name Dose Route Start Last Admin Trade Name Freq PRN Reason Stop Dose Admin Acetaminophen 1,000 mg 12/20/21 06:00 12/20/21 08:52 Acetaminophen 500 Mg Tab PO 01/18/22 23:59 1,000 mg PREOP ATIYA Administration Gabapentin 600 mg 12/20/21 06:00 12/20/21 08:53 Gabapentin 300 Mg Cap PO 01/18/22 23:59 600 mg PREOP ATIYA Administration Ringer's Solution 1,000 mls @ 80 mls/hr 12/20/21 06:00 12/20/21 09:14 IV 01/18/22 23:59 80 mls/hr INFUSION ATIYA Administration IV Miscellaneous Supplies 1 each 12/20/21 06:00 Iv Access IV 01/18/22 23:59 DIRECTED ATIYA Sodium Chloride 0 ml 12/20/21 06:00 Normal Saline Flush 10 Ml Syr IV 01/18/22 23:59 PRN PRN Sodium Chloride 0 ml 12/20/21 06:00 Normal Saline 10 Ml Vial IJ 01/18/22 23:59 DIRECTED PRN Sterile Water 0 ml 12/20/21 06:00 Water,Injection,Sterile 10 Ml Vial IJ 01/18/22 23:59 DIRECTED PRN PFSH Active Problems Active Problems: Problem Status Onset Code Dysuria R30.0 Medical History Medical History Perianal abscess (06/22/13) 06/22/13; INCISION AND DRAINAGE Surgical History Surgical History History of surgery on arm as a child secondary to fracture Tobacco Smoking/Tobacco Use Status: Former Tobacco Use Alcohol Alcohol Intake: current Alcohol intake frequency: a few times a week Alcohol type: beer Substance Use Substance use: Occasionally Substance use type: marijuana Vital Signs and Lab Results Vital Signs Most Recent Vital Signs in EMR: Most Recent Vital Signs Temp Pulse Resp BP Pulse Ox 36.1 C L 81 18 130/85 99 12/20/21 08:32 12/20/21 08:32 12/20/21 08:32 12/20/21 08:32 12/20/21 08:32 Lab Results Blood Type / Crossmatch: No Data to Display Complete Blood Count: No Data to Display Complete Metabolic Panel: No Data to Display Liver Function Panel: No Data to Display Coagulation Panel: No Data to Display Cardiac Panel: No Data to Display Arterial Blood Gas: No Data to Display Venous Blood Gas: No Data to Display Pancreas Panel: No Data to Display Thyroid Panel: No Data to Display Infectious Disease: Coronavirus (COVID-19)(PCR) Negative (Negative) 12/18/21 07:25 Coronavirus 2019 Source Nasal/Nares 12/18/21 07:25 Blood Cultures: No Data to Display Toxicology Panel: No Data to Display Anesthesia Assessment and Plan Anesthesia History Personal History: No History of Anesthesia Complications Family History: No Family History of Anesthesia Complications Exercise Tolerance Exercise Tolerance: Metabolic Equivalents>4 Pertinent Negatives Pertinent Negatives: No Symptoms of GERD, No Major Cardiovascular Symptoms or Complaints and No Major Pulmonary Symptoms or Complaints Cardiac & Pulmonary Exam Cardiac Exam: Normal S1/S2 Heart Sounds Pulmonary Exam: Clear Bilateral Breath Sounds Implantable Cardiac Device Does patient have a Pacemaker or an ICD?: No Airway Exam Known Difficult Airway: No Mallampati Class: 2 Mouth Opening: Narrow (< 3cm) Thyromental Distance: Greater than 3 cm Neck Range of Motion: Full ROM Neck Circumference: Normal Teeth Condition: Normal Dentition ASA Classification ASA Score: ASA 2 Emergency Case?: No NPO Status NPO Status: NPO Clears >2 hours, Solids >8 hours Anesthesia Plan Resuscitation Status: Full Code Anesthesia Technique: Spinal Anesthesia Airway Planned: Natural Airway Monitors Used: Standard Monitors Preoperative Comments:: Intrathecal Narcotics
[2021-12-20 09:58] VITALS: BMI 33.7
[2021-12-20] MEDS: Bupivacaine 0.25% Pres-Free 30 ML VIAL (11:11)
[2021-12-20 11:27] VITALS: BP 119/75; PULSE 72; RESP 18; TEMP 36.2; O2SAT 98
--- NOTE | 2021-12-20 12:33 | W.ANESPOSTOP ---
Postoperative Evaluation Date, Time and Location Date Performed: 12/20/21 Time Performed: 12:33 Patient Location: Day Surgery Unit Vital Signs Most Recent Imported Vital Signs: Most Recent Vital Signs Temp Pulse Resp BP Pulse Ox 36.2 C L 72 18 119/75 98 12/20/21 11:27 12/20/21 11:27 12/20/21 11:27 12/20/21 11:27 12/20/21 11:27 Pain Score Most Recent Pain Score: Most Recent Pain Score Pain Level 0 12/20/21 11:27 Assessment Mental Status: Awake (Alert & Oriented to Patient Baseline) Airway and Respiratory Function: Patent airway with normal (patient baseline) respiratory exam Cardiovascular Function: Hemodynamically Stable Hydration Status: Adequately Hydrated Nausea & Vomiting: No Nausea or Vomiting Pain: Pt. Denies Any Pain Peripheral Nerve Block: Patient did not receive a nerve block
[2021-12-20 12:46] VITALS: BP 131/78; PULSE 78; RESP 18; TEMP 36.7; O2SAT 99
== END 2021-12-20 13:15 | disposition home or self-care (01) ==
PROVIDERS: PCP Nurse Practitioner Family; Visit Provider Surgery
PROC: (CPT 46270; principal; 2021-12-20 09:30)
DX: K60.3 Anal fistula (principal)
CPT/HCPCS: 46270; J2250; J2405

== ENCOUNTER 2023-07-06 11:33 | Outpatient (REF) | payer BC, SELFPAY | END 2023-07-06 11:34 | disposition home or self-care (01) | LOC: NCHCN 11:33 | PROVIDERS: PCP Nurse Practitioner Family; Visit Provider Nurse Practitioner Family | DX: K61.0 Anal abscess (principal) | CPT/HCPCS: 87070; 87205 ==